=== PATIENT | female | born 1990 | race Caucasian/White ===

== ENCOUNTER 2017-03-08 18:18 | Inpatient (IN) | payer BC, MEDICAID ==
[2017-03-08] MEDS ORDERED: Lactated Ringers 1,000 ML IV ONE (18:54)
[2017-03-08] MEDS ORDERED: Sodium Chloride 0.9% 10 ML Syringe FLUSH PRN (18:56)
[2017-03-08] MEDS ORDERED: Nalbuphine 10 MG/1 ML Vial IVPUSH ONE (19:19)
[2017-03-08] MEDS ORDERED: Ampicillin 2 GM in Sodium Chloride 0.9% 100 ML IV ONE (19:30)
[2017-03-08] MEDS ORDERED: Ampicillin 1 GM Vial ONE ×2 (19:37→23:37)
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
[2017-03-08] MEDS ORDERED: Morphine PF 10 MG/10 ML SDV ONE (20:10)
[2017-03-08] MEDS ORDERED: fentaNYL 100 MCG/2 ML SDV ITHECAL ONE (20:10)
[2017-03-08] MEDS ORDERED: Morphine 2 MG/ML Syringe IVPUSH PRN (22:21)
[2017-03-08] MEDS ORDERED: Meperidine PF 25 MG/ML Syringe IVPUSH PRN (22:21)
[2017-03-08] MEDS ORDERED: Nalbuphine 10 MG/1 ML Vial IVPUSH PRN (22:21)
[2017-03-08] MEDS ORDERED: Naloxone 0.4 MG in Sodium Chloride 0.9% 100 ML IV PRN (22:21)
[2017-03-08] MEDS ORDERED: diphenhydrAMINE 50 MG/ML SDV IVPUSH PRN (22:21)
[2017-03-08] MEDS ORDERED: hydrOXYzine HCl 50 MG/ML SDV IM PRN (22:21)
[2017-03-08] MEDS ORDERED: Promethazine 25 MG/ML SDV IV PRN ×2 (22:21)
[2017-03-08] MEDS ORDERED: Naloxone 0.4 MG/ML SDV IVPUSH PRN ×2 (22:21)
[2017-03-08] MEDS ORDERED: Ketorolac 15 MG/ML SDV IVPUSH PRN (22:21)
[2017-03-08] MEDS ORDERED: fentaNYL 100 MCG/2 ML SDV EPIDUR ONE (22:45)
[2017-03-08] MEDS ORDERED: fentaNYL 300 MCG in Ropivacaine 200 ML IV ONE (22:45)
[2017-03-08] MEDS ORDERED: ePHEDrine 50 MG/ML SDV ONE (23:23)
[2017-03-08] MEDS: Ampicillin 1 GM in Sodium Chloride 0.9% 50 ML IV SCH (23:30)
[2017-03-09] MEDS ORDERED: Naloxone 0.4 MG in Sodium Chloride 0.9% 100 ML IV PRN (00:06)
[2017-03-09] MEDS ORDERED: Naloxone 0.4 MG/ML SDV IVPUSH PRN (00:06)
[2017-03-09] MEDS ORDERED: hydrOXYzine HCl 50 MG/ML SDV IM PRN (00:06)
[2017-03-09] MEDS ORDERED: diphenhydrAMINE 50 MG/ML SDV IVPUSH PRN (00:06)
[2017-03-09] MEDS ORDERED: Promethazine 25 MG/ML SDV IV PRN (00:11)
[2017-03-09] MEDS ORDERED: Ondansetron 4 MG/2 ML SDV IVPUSH PRN (00:12)
[2017-03-09] MEDS ORDERED: ePHEDrine 50 MG/ML SDV IV PRN (00:13)
[2017-03-09] MEDS ORDERED: Lactated Ringers 500 ML IV ONE (00:15)
[2017-03-09] MEDS ORDERED: Oxytocin 10 Units/1 ML SDV IM ONE (01:55)
[2017-03-09] MEDS ORDERED: Docusate Sodium 100 MG Cap PO PRN (02:03)
--- NOTE | 2017-03-09 03:10 | DEL ---
DATE OF DELIVERY: 03/09/2017 DELIVERY SUMMARY: I was called to the bedside about 0130 hours. The patient was complete, pushing; after a couple of pushes, she delivered a live male , weighing 6 pounds and 12 ounces, 19 inches long, score of 9 and 9. There was a nuchal cord that was reduced. The baby's entire body was delivered gently and laid in the maternal abdomen for skin to skin contact. There was delayed cord clamping, about 60 seconds. There were two periurethral laceration that did not require any stitches being 1st degree. Estimated blood loss 300 mL. The placenta delivered intact, three vessel. This was a spontaneous vaginal delivery. We will continue to follow up the patient for routine care. /[id number] ELENI/GINA
[2017-03-09] MEDS: Ampicillin 1 GM in Sodium Chloride 0.9% 50 ML IV SCH (03:30)
[2017-03-09] MEDS ORDERED: Naltrexone 50 MG Tab PO ONE (03:45)
[2017-03-09] MEDS: Acetaminophen/Codeine 300-30 MG Tab PO PRN ×2 (04:00→22:07)
[2017-03-09] MEDS: Ibuprofen 600 MG Tab PO SCH ×3 (09:08→19:47)
[2017-03-10] MEDS: Ibuprofen 600 MG Tab PO SCH ×4 (02:00→20:46)
--- NOTE | 2017-03-10 08:01 | PCM.PNPP ---
- General Info Date of Service: 03/10/17 Functional Status: Reports: pain controlled - Review of Systems General: Reports: No Symptoms HEENT: Reports: no symptoms Pulmonary: Reports: no symptoms Cardiovascular: Reports: No Symptoms Gastrointestinal: Reports: No symptoms Genitourinary: Reports: no symptoms Musculoskeletal: Reports: no symptoms Skin: Reports: no symptoms Neurological: Reports: No Symptoms Psychiatric: Reports: no symptoms - General Info Date of Service: 03/10/17 - Patient Data Vital Signs - most recent: Last Vital Signs Temp 97.6 F 03/09/17 23:30 Pulse 81 03/09/17 23:30 Resp 18 03/09/17 23:30 BP 113/73 03/09/17 23:30 Pulse Ox 99 03/09/17 23:30 Weight - most recent: 84.822 kg Med Orders - Current: Current Medications Acetaminophen/Codeine Phosphate (Tylenol With Codeine No.3 300mg/30mg) 1 tab PO Q4H PRN PRN Reason: Pain (moderate 4-6) Last Admin: 03/09/17 22:07 Dose: 1 tab Diphenhydramine HCl (Benadryl) 25 mg IVPUSH ASDIRECTED PRN PRN Reason: PRURITUS Docusate Sodium (Colace) 100 mg PO BID PRN PRN Reason: Constipation Last Admin: 03/09/17 19:58 Dose: 100 mg Ephedrine Sulfate (Ephedrine Sulfate) 0 mg IV ASDIRECTED PRN PRN Reason: Hypotension Last Admin: 03/08/17 23:27 Dose: 5 mg Hydroxyzine HCl (Vistaril) 25 - 50 mg IM Q4H PRN PRN Reason: N/V Hydroxyzine HCl (Vistaril) 25 - 50 mg IM Q4H PRN PRN Reason: N/V Naloxone HCl 0.4 mg/ Sodium (Chloride) 101 mls @ 25 mls/hr IV ASDIRECTED PRN PRN Reason: Respiratory Depression Naloxone HCl 0.4 mg/ Sodium (Chloride) 101 mls @ 25 mls/hr IV ASDIRECTED PRN PRN Reason: Respiratory Depression Ibuprofen (Motrin) 600 mg PO Q6H ROSE MARIE Last Admin: 03/10/17 02:00 Dose: 600 mg Ketorolac Tromethamine (Toradol) 15 mg IVPUSH Q6H PRN PRN Reason: BREAKTHRU PAIN Meperidine HCl (Demerol) 12.5 mg IVPUSH Q1H PRN PRN Reason: BREAKTHRU PAIN Morphine Sulfate (Morphine) 2 mg IVPUSH Q1H PRN PRN Reason: BREAKTHRU PAIN Nalbuphine HCl (Nubain) 10 mg IVPUSH Q1H PRN PRN Reason: PRURITUS Naloxone HCl (Narcan) 0.4 mg IVPUSH ASDIRECTED PRN PRN Reason: RESPIRATORY STATUS Naloxone HCl (Narcan) 0.1 mg IVPUSH ASDIRECTED PRN PRN Reason: Respiratory Depression Naloxone HCl (Narcan) 0.1 mg IVPUSH ASDIRECTED PRN PRN Reason: Respiratory Depression Ondansetron HCl (Zofran) 4 mg IVPUSH Q6H PRN PRN Reason: Nausea/Vomiting Promethazine HCl (Phenergan) 6.25 mg IV Q4H PRN PRN Reason: N/V Promethazine HCl (Phenergan) 12.5 mg IV Q4H PRN PRN Reason: N/V Promethazine HCl (Phenergan) 0 mg IV Q4H PRN PRN Reason: Nausea/Vomiting Sodium Chloride (Saline Flush) 10 ml FLUSH ASDIRECTED PRN PRN Reason: Keep Vein Open Last Admin: 03/08/17 19:18 Dose: 10 ml Discontinued Medications Ampicillin Sodium (Ampicillin) Confirm Administered Dose 2 gm .ROUTE .STK-MED ONE Stop: 03/08/17 19:38 Last Admin: 03/08/17 19:45 Dose: Not Given Ampicillin Sodium (Ampicillin) Confirm Administered Dose 1 gm .ROUTE .STK-MED ONE Stop: 03/08/17 23:38 Last Admin: 03/08/17 23:43 Dose: Not Given Diphenhydramine HCl (Benadryl) 25 mg IVPUSH ASDIRECTED PRN PRN Reason: PRURITUS Ephedrine Sulfate (Ephedrine Sulfate) Confirm Administered Dose 50 mg .ROUTE .STK-MED ONE Stop: 03/08/17 23:24 Last Admin: 03/08/17 23:46 Dose: Not Given Lactated Ringer's (Ringers, Lactated) 1,000 mls @ 999 mls/hr IV BOLUS ONE Stop: 03/08/17 19:54 Last Admin: 03/08/17 19:18 Dose: 999 mls/hr Ampicillin Sodium 2 gm/ Sodium (Chloride) 100 mls @ 200 mls/hr IV ONETIME ONE Stop: 03/08/17 19:59 Last Admin: 03/08/17 19:45 Dose: 200 mls/hr Ampicillin Sodium 1 gm/ Sodium (Chloride) 50 mls @ 100 mls/hr IV Q4H ROSE MARIE Last Admin: 03/09/17 03:30 Dose: Not Given Lactated Ringer's (Ringers, Lactated) 500 mls @ 500 mls/hr IV NOW ONE Stop: 03/09/17 01:14 Last Admin: 03/08/17 20:44 Dose: 500 mls/hr Nalbuphine HCl (Nubain) 10 mg IVPUSH ONETIME ONE Stop: 03/08/17 19:20 Last Admin: 03/08/17 19:28 Dose: 10 mg Naltrexone HCl (Naltrexone) 25 mg PO NOW ONE Stop: 03/09/17 03:46 Last Admin: 03/09/17 04:00 Dose: 25 mg Oxytocin (Pitocin) 10 unit IM ONETIME ONE Stop: 03/09/17 01:56 Last Admin: 03/09/17 01:55 Dose: 10 unit - Interaction Disposition, : to Nursery Support Person: Mother, Sister - Recovery Exam Fundal Tone: Firm Fundal Level: At Umbilicus Fundal Placement: Midline Lochia Amount: Moderate Lochia Color: Rubra/Red Perineum Description: Intact, Minimal Bruising/Swelling Episiotomy/Laceration: Approximated Bladder Status: Voiding Urinary Elimination: Other (see below) Other Urinary Elimination, : trying to void - Exam General: alert, oriented HEENT: Pupils equal Neck: supple Lungs: Clear to auscultation, Normal respiratory effort Cardiovascular: Regular Rate, Regular Rhythm Abdomen: bowel sounds present, soft, no tenderness, no distension Extremities: no edema Skin: warm, dry, intact Wound/Incisions: healing well Neurological: no new focal deficit Psy/Mental Status: alert, normal affect, normal mood - Problem List & Annotations (1) Labor without complication SNOMED Code(s): 99029007 Code(s): O80 - ENCOUNTER FOR FULL-TERM UNCOMPLICATED DELIVERY Status: Acute Current Visit: Yes (2) H/O drug abuse SNOMED Code(s): 282957062 Code(s): Z87.898 - PERSONAL HISTORY OF OTHER SPECIFIED CONDITIONS Status: Acute Current Visit: Yes (3) Group B streptococcal infection during SNOMED Code(s): 507848678 Code(s): O98.819 - OTH MATERNAL INFEC/PARASTC DISEASES COMP PREG, UNSP TRI; B95.1 - STREPTOCOCCUS, GROUP B, CAUSING DISEASES CLASSD ELSWHR Status: Acute Current Visit: Yes (4) Delivery normal SNOMED Code(s): 70536568 Code(s): O80 - ENCOUNTER FOR FULL-TERM UNCOMPLICATED DELIVERY; Z37.9 - OUTCOME OF DELIVERY, UNSPECIFIED Status: Acute Current Visit: Yes (5) care and examination SNOMED Code(s): 707722588, 064803228, 165507451 Code(s): Z39.2 - ENCOUNTER FOR ROUTINE FOLLOW-UP Status: Acute Current Visit: Yes - Problem List Review Problem List Initiated/Reviewed/Updated: Yes - My Orders Last 24 Hours: My Active Orders 03/09/17 08:00 Ibuprofen [Motrin] 600 mg PO Q6H - Plan Plan:: Regular orders
[2017-03-10] MEDS ORDERED: Lactated Ringers 1,000 ML IV ONE (08:39)
[2017-03-10] MEDS ORDERED: Acetaminophen/Butalbital/Caffeine 325-50-40 MG Tab PO PRN (08:42)
--- NOTE | 2017-03-10 08:56 | PCM.SN ---
- Free Text/Narrative Note: Patient assessed this am. Reports she has had headache worse with upright position since 1829 last night. Extends down into her shoulders bilaterally. Discussed with patient options for PDPH. Conservative treatment of fluids, caffeine, bedrest discussed as well as epidural blood patch risks, benefits. Patient verbalizes she would like to avoid epidural blood patch but would like it if other treatment is not effective. 1 liter LR bolus ordered IV, Fioricet 2 tabs every 6 hours PRN, and bedrest as much as possible. Encouraged to let RN know if she would like epidural blood patch. Denies further questions.
[2017-03-10] MEDS: Acetaminophen/Codeine 300-30 MG Tab PO PRN (18:53)
[2017-03-11] MEDS: Ibuprofen 600 MG Tab PO SCH ×2 (02:07→08:28)
--- NOTE | 2017-03-11 08:11 | PCM.PNPP ---
- General Info Date of Service: 03/11/17 Functional Status: Reports: pain controlled, tolerating diet - Review of Systems General: Reports: No Symptoms HEENT: Reports: no symptoms Pulmonary: Reports: no symptoms Cardiovascular: Reports: No Symptoms Gastrointestinal: Reports: No symptoms Genitourinary: Reports: no symptoms Musculoskeletal: Reports: no symptoms Skin: Reports: no symptoms Neurological: Reports: No Symptoms Psychiatric: Reports: no symptoms - General Info Date of Service: 03/11/17 - Patient Data Vital Signs - most recent: Last Vital Signs Temp 97.8 F 03/11/17 00:00 Pulse 80 03/11/17 00:00 Resp 18 03/11/17 00:00 BP 105/55 L 03/11/17 00:00 Pulse Ox 99 03/11/17 00:00 Weight - most recent: 84.822 kg Lab Results - last 24 hrs: Laboratory Results - last 24 hr 03/10/17 03/10/17 Range/Units 08:42 10:15 WBC 21.3 H (4.5-12.0) X10-3/uL RBC 3.02 L (3.23-5.20) x10(6)uL Hgb 9.3 L (11.5-15.5) g/dL Hct 27.8 L (30.0-51.3) % MCV 92.3 (80-96) fL MCH 30.8 (27.7-33.6) pg MCHC 33.4 (32.2-35.4) g/dL RDW 13.6 (11.5-15.5) % Plt Count 328 (125-369) X10(3)uL MPV 7.9 (7.4-10.4) fL Add Manual Diff Yes Neutrophils % (Manual) 71 (46-82) % Band Neutrophils % 1 (0-6) % Lymphocytes % (Manual) 25 (13-37) % Monocytes % (Manual) 2 L (4-12) % Eosinophils % (Manual) 1 (0-5) % Urine Opiates Screen Positive H (NEGATIVE) Ur Oxycodone Screen Negative (NEGATIVE) Ur Propoxyphene Screen Negative (NEGATIVE) Ur Barbituates Screen Negative (NEGATIVE) Ur Tricyclics Screen Negative (NEGATIVE) Ur Phencyclidine Scrn Negative (NEGATIVE) Ur Amphetamine Screen Negative (NEGATIVE) Urine MDMA Screen Negative (NEGATIVE) U Benzodiazepines Scrn Negative (NEGATIVE) U Cocaine Metab Screen Negative (NEGATIVE) U Marijuana (THC) Screen Negative (NEGATIVE) Med Orders - Current: Current Medications Acetaminophen/Butalbital/Caffeine (Fioricet 325-50-40 Mg) 2 tab PO Q6H PRN PRN Reason: Headache Last Admin: 03/10/17 09:04 Dose: 2 tab Acetaminophen/Codeine Phosphate (Tylenol With Codeine No.3 300mg/30mg) 1 tab PO Q4H PRN PRN Reason: Pain (moderate 4-6) Last Admin: 03/10/17 18:53 Dose: 1 tab Diphenhydramine HCl (Benadryl) 25 mg IVPUSH ASDIRECTED PRN PRN Reason: PRURITUS Docusate Sodium (Colace) 100 mg PO BID PRN PRN Reason: Constipation Last Admin: 03/09/17 19:58 Dose: 100 mg Ephedrine Sulfate (Ephedrine Sulfate) 0 mg IV ASDIRECTED PRN PRN Reason: Hypotension Last Admin: 03/08/17 23:27 Dose: 5 mg Hydroxyzine HCl (Vistaril) 25 - 50 mg IM Q4H PRN PRN Reason: N/V Hydroxyzine HCl (Vistaril) 25 - 50 mg IM Q4H PRN PRN Reason: N/V Naloxone HCl 0.4 mg/ Sodium (Chloride) 101 mls @ 25 mls/hr IV ASDIRECTED PRN PRN Reason: Respiratory Depression Naloxone HCl 0.4 mg/ Sodium (Chloride) 101 mls @ 25 mls/hr IV ASDIRECTED PRN PRN Reason: Respiratory Depression Ibuprofen (Motrin) 600 mg PO Q6H ROSE MARIE Last Admin: 03/11/17 02:07 Dose: 600 mg Ketorolac Tromethamine (Toradol) 15 mg IVPUSH Q6H PRN PRN Reason: BREAKTHRU PAIN Meperidine HCl (Demerol) 12.5 mg IVPUSH Q1H PRN PRN Reason: BREAKTHRU PAIN Morphine Sulfate (Morphine) 2 mg IVPUSH Q1H PRN PRN Reason: BREAKTHRU PAIN Nalbuphine HCl (Nubain) 10 mg IVPUSH Q1H PRN PRN Reason: PRURITUS Naloxone HCl (Narcan) 0.4 mg IVPUSH ASDIRECTED PRN PRN Reason: RESPIRATORY STATUS Naloxone HCl (Narcan) 0.1 mg IVPUSH ASDIRECTED PRN PRN Reason: Respiratory Depression Naloxone HCl (Narcan) 0.1 mg IVPUSH ASDIRECTED PRN PRN Reason: Respiratory Depression Ondansetron HCl (Zofran) 4 mg IVPUSH Q6H PRN PRN Reason: Nausea/Vomiting Promethazine HCl (Phenergan) 6.25 mg IV Q4H PRN PRN Reason: N/V Promethazine HCl (Phenergan) 12.5 mg IV Q4H PRN PRN Reason: N/V Promethazine HCl (Phenergan) 0 mg IV Q4H PRN PRN Reason: Nausea/Vomiting Sodium Chloride (Saline Flush) 10 ml FLUSH ASDIRECTED PRN PRN Reason: Keep Vein Open Last Admin: 03/08/17 19:18 Dose: 10 ml Discontinued Medications Ampicillin Sodium (Ampicillin) Confirm Administered Dose 2 gm .ROUTE .STK-MED ONE Stop: 03/08/17 19:38 Last Admin: 03/08/17 19:45 Dose: Not Given Ampicillin Sodium (Ampicillin) Confirm Administered Dose 1 gm .ROUTE .STK-MED ONE Stop: 03/08/17 23:38 Last Admin: 03/08/17 23:43 Dose: Not Given Diphenhydramine HCl (Benadryl) 25 mg IVPUSH ASDIRECTED PRN PRN Reason: PRURITUS Ephedrine Sulfate (Ephedrine Sulfate) Confirm Administered Dose 50 mg .ROUTE .STK-MED ONE Stop: 03/08/17 23:24 Last Admin: 03/08/17 23:46 Dose: Not Given Lactated Ringer's (Ringers, Lactated) 1,000 mls @ 999 mls/hr IV BOLUS ONE Stop: 03/08/17 19:54 Last Admin: 03/08/17 19:18 Dose: 999 mls/hr Ampicillin Sodium 2 gm/ Sodium (Chloride) 100 mls @ 200 mls/hr IV ONETIME ONE Stop: 03/08/17 19:59 Last Admin: 03/08/17 19:45 Dose: 200 mls/hr Ampicillin Sodium 1 gm/ Sodium (Chloride) 50 mls @ 100 mls/hr IV Q4H ROSE MARIE Last Admin: 03/09/17 03:30 Dose: Not Given Lactated Ringer's (Ringers, Lactated) 500 mls @ 500 mls/hr IV NOW ONE Stop: 03/09/17 01:14 Last Admin: 03/08/17 20:44 Dose: 500 mls/hr Lactated Ringer's (Ringers, Lactated) 1,000 mls @ 999 mls/hr IV BOLUS ONE Stop: 03/10/17 09:39 Last Admin: 03/10/17 08:50 Dose: 999 mls/hr Nalbuphine HCl (Nubain) 10 mg IVPUSH ONETIME ONE Stop: 03/08/17 19:20 Last Admin: 03/08/17 19:28 Dose: 10 mg Naltrexone HCl (Naltrexone) 25 mg PO NOW ONE Stop: 03/09/17 03:46 Last Admin: 03/09/17 04:00 Dose: 25 mg Oxytocin (Pitocin) 10 unit IM ONETIME ONE Stop: 03/09/17 01:56 Last Admin: 03/09/17 01:55 Dose: 10 unit - Infant Interaction Infant Disposition, : [place] in Room with Family Support Person: Mother, Sister - Recovery Exam Fundal Tone: Firm Fundal Level: 2 Fingerbreadths Below Umbilicus Fundal Placement: Midline Lochia Amount: Small, Moderate Lochia Color: Rubra/Red Perineum Description: Intact, Minimal Bruising/Swelling Episiotomy/Laceration: None Bladder Status: Voiding Urinary Elimination: Voided Other Urinary Elimination, : trying to void - Exam General: alert, oriented HEENT: Pupils equal Neck: supple Lungs: Clear to auscultation, Normal respiratory effort Cardiovascular: Regular Rate, Regular Rhythm Abdomen: bowel sounds present, soft, no tenderness, no distension Extremities: no edema Skin: warm, dry, intact Wound/Incisions: healing well Neurological: no new focal deficit Psy/Mental Status: alert, normal affect, normal mood - Problem List & Annotations (1) Labor without complication SNOMED Code(s): 74641568 Code(s): O80 - ENCOUNTER FOR FULL-TERM UNCOMPLICATED DELIVERY Status: Acute Current Visit: Yes (2) H/O drug abuse SNOMED Code(s): 476935479 Code(s): Z87.898 - PERSONAL HISTORY OF OTHER SPECIFIED CONDITIONS Status: Acute Current Visit: Yes (3) Group B streptococcal infection during SNOMED Code(s): 909421275 Code(s): O98.819 - OTH MATERNAL INFEC/PARASTC DISEASES COMP PREG, UNSP TRI; B95.1 - STREPTOCOCCUS, GROUP B, CAUSING DISEASES CLASSD ELSWHR Status: Acute Current Visit: Yes (4) Delivery normal SNOMED Code(s): 86164394 Code(s): O80 - ENCOUNTER FOR FULL-TERM UNCOMPLICATED DELIVERY; Z37.9 - OUTCOME OF DELIVERY, UNSPECIFIED Status: Acute Current Visit: Yes (5) care and examination SNOMED Code(s): 803771928, 386927920, 988048867 Code(s): Z39.2 - ENCOUNTER FOR ROUTINE FOLLOW-UP Status: Acute Current Visit: Yes - Problem List Review Problem List Initiated/Reviewed/Updated: Yes - Plan Plan:: DAY better. Had a blood patch yesterday. Regular orders
[2017-03-11 10:57] VITALS: BP 95/65
--- NOTE | 2017-03-12 04:30 | DISCH ---
DISCHARGE DATE: 03/11/2017 REASON FOR ADMISSION: Onset of labor. DISCHARGE DIAGNOSIS: Spontaneous vaginal delivery. PROCEDURES: None except vaginal delivery and blood patch application by Anesthesia. BRIEF HISTORY AND HOSPITAL COURSE: A 27-year-old female who delivered at term vaginally with no complications the day after she developed spinal headache which was treated by blood patch and improved. She is discharged home today on no medications. Her hemoglobin is 9.3. She can continue with the use of ibuprofen at home and iron supplementation and vitamins. FOLLOW UP: In 6 weeks. Please note that I spent 35 minutes in the discharge of the patient. /[id number] ELENI/GINA
== END 2017-03-11 09:58 | disposition home or self-care (01) | DRG 775 ==
LOC: FB.OBCHECK 18:18 → FB.OB 18:18 → FB.OBCHECK 18:52 → UNDOADMIN 18:52 → FB.OB 18:52
PROVIDERS: ADMIT Family Medicine; ATTEND Family Medicine
PROC: 10E0XZZ Delivery of Products of Conception, External Approach (ICD-10-PCS; principal; 2017-03-10)
PROC: 10907ZC Drainage of Amniotic Fluid, Therapeutic from Products of Conception, Via Natural or Artificial Opening (ICD-10-PCS; 2017-03-10)
PROC: 00HU33Z Insertion of Infusion Device into Spinal Canal, Percutaneous Approach (ICD-10-PCS; 2017-03-10)
DX: O69.81X0 Labor and delivery complicated by cord around neck, without compression, not applicable or unspecified (principal); O70.0 First degree perineal laceration during delivery; Z3A.39 39 weeks gestation of pregnancy; Z37.0 Single live birth; O99.330 Smoking (tobacco) complicating pregnancy, unspecified trimester; O99.320 Drug use complicating pregnancy, unspecified trimester; F11.90 Opioid use, unspecified, uncomplicated; O89.4 Spinal and epidural anesthesia-induced headache during the puerperium; O99.824 Streptococcus B carrier state complicating childbirth
CPT/HCPCS: 36415; 62273; 80305; 85025; A4217; A9270-GY; J0290; J2270; J2300; J2590; J2795; J3010; J7030; J7050; J7120